=== PATIENT | female | born 1930 | race Caucasian/White ===

== ENCOUNTER 2018-01-15 14:11 | Inpatient (IN) | payer MEDICARE, BC, OTHER ==
[2018-01-15 16:17] LABS: ADD MAN DIFF? NO
[2018-01-15 16:22] LABS: BASO # 0.1 x10^3/uL (0.0-0.2); BASO % 1 % (0-3); EOS # 0.3 x10^3/uL (0.0-0.7); EOS % 5 % (0-3); HEMATOCRIT 36.9 % (36.0-47.0); HEMOGLOBIN 12.4 g/dL (12.0-15.5); LYMPH # 1.8 x10^3/uL (1.0-4.8); LYMPH % 29 % (24-48); MEAN CORPUSCULAR HEMOGLOBIN 31 pg (25-35); MEAN CORPUSCULAR HGB CONC 34 g/dL (31-37); MEAN CORPUSCULAR VOLUME 91 fL (79-100); MONO # 0.5 x10^3/uL (0.0-1.1); MONO % 8 % (0-9); NEUT # 3.5 x10^3uL (1.8-7.7); NEUT % 57 % (31-73); PLATELET COUNT 230 x10^3/uL (140-400); RED BLOOD COUNT 4.05 x10^6/uL (3.50-5.40); RED CELL DISTRIBUTION WIDTH 15.2 % (11.5-14.5); WHITE BLOOD COUNT 6.1 x10^3/uL (4.0-11.0)
[2018-01-15 16:28] LABS: PROTHROMBIN TIME PATIENT 12.3 SEC (11.7-14.0)
[2018-01-15 17:13] LABS: ANION GAP 10 (6-14); BLOOD UREA NITROGEN 11 mg/dL (7-20); CALCIUM 9.1 mg/dL (8.5-10.1); CARBON DIOXIDE 31 mmol/L (21-32); CHLORIDE 102 mmol/L (98-107); CREATININE 1.1 mg/dL (0.6-1.0); GFR 46.8; GLUCOSE 94 mg/dL (70-99); POTASSIUM 4.2 mmol/L (3.5-5.1); SODIUM 143 mmol/L (136-145)
[2018-01-15 17:20] LABS: ALBUMIN 3.2 g/dL (3.4-5.0); ALK PHOS 88 U/L (46-116); ALT (SGPT) 15 U/L (14-59); AST (SGOT) 20 U/L (15-37); DIRECT BILIRUBIN 0.2 mg/dL (0.0-0.2); MAGNESIUM 1.9 mg/dL (1.8-2.4); TOTAL BILIRUBIN 0.6 mg/dL (0.2-1.0); TOTAL PROTEIN 6.5 g/dL (6.4-8.2)
[2018-01-15 17:21] LABS: LACTIC ACID 1.4 mmol/L (0.4-2.0)
[2018-01-15 17:37] LABS: TROPONINI < 0.017 ng/mL (0.000-0.055)
[2018-01-15 17:39] LABS: THYROID STIM HORMONE (TSH) 1.483 uIU/mL (0.358-3.74)
[2018-01-15 17:42] LABS: CKMB INDEX 0.9 % (0-4); CKMB MASS 0.5 ng/mL (0.0-3.6); CREATINE KINASE 57 U/L (26-192)
[2018-01-15 17:53] LABS: BILIRUBIN,URINE NEGATIVE (NEG); CLARITY,URINE CLEAR; COLOR,URINE YELLOW; GLUCOSE,URINE NEGATIVE (NEG); NITRITE,URINE NEGATIVE (NEG); PH,URINE 5.5; PROTEIN,URINE NEGATIVE (NEG-TRACE); UROBILINOGEN,URINE 0.2 mg/dL (0.2 mg/dL)
[2018-01-15] MEDS ORDERED: ONDANSETRON PF 4 MG/2 ML VIAL. IV (18:00)
[2018-01-15 18:09] LABS: BACTERIA,URINE FEW /HPF (0-FEW); HYALINE CASTS, URINE MODERATE /HPF; RBC,URINE OCC /HPF (0-2); SQUAMOUS EPITHELIAL CELL,UR MOD /LPF
[2018-01-16 08:50] LABS: ADD MAN DIFF? NO
[2018-01-16 09:04] LABS: BASO % 1 % (0-3); EOS # 0.4 x10^3/uL (0.0-0.7); EOS % 6 % (0-3); HEMATOCRIT 37.1 % (36.0-47.0); HEMOGLOBIN 12.3 g/dL (12.0-15.5); LYMPH % 35 % (24-48); MEAN CORPUSCULAR HEMOGLOBIN 31 pg (25-35); MEAN CORPUSCULAR HGB CONC 33 g/dL (31-37); MEAN CORPUSCULAR VOLUME 93 fL (79-100); MONO # 0.4 x10^3/uL (0.0-1.1); MONO % 8 % (0-9); NEUT # 2.8 x10^3uL (1.8-7.7); NEUT % 50 % (31-73); PLATELET COUNT 220 x10^3/uL (140-400); RED BLOOD COUNT 4.01 x10^6/uL (3.50-5.40); RED CELL DISTRIBUTION WIDTH 14.7 % (11.5-14.5); WHITE BLOOD COUNT 5.6 x10^3/uL (4.0-11.0)
[2018-01-16 09:22] LABS: ANION GAP 5 (6-14); BLOOD UREA NITROGEN 12 mg/dL (7-20); CALCIUM 9.8 mg/dL (8.5-10.1); CARBON DIOXIDE 33 mmol/L (21-32); CHLORIDE 105 mmol/L (98-107); CREATININE 1.1 mg/dL (0.6-1.0); GFR 46.8; GLUCOSE 99 mg/dL (70-99); POTASSIUM 4.1 mmol/L (3.5-5.1); SODIUM 143 mmol/L (136-145)
[2018-01-16] MEDS ORDERED: SIMETHICONE 80 MG TAB.CHEW PO (11:30)
[2018-01-16] MEDS ORDERED: SENNOSIDES/DOCUSATE 8.6/50MG TABLET. PO (11:30)
[2018-01-16] MEDS ORDERED: NON FORMULARY ITEM (Ipratropium/Albuterol Sulfate (Combivent Respimat Inhal) 2 INH) IH (11:30)
[2018-01-16] MEDS ORDERED: POLYETHYLENE GLYCOL 3350 17 GM PACKET. PO (11:30)
[2018-01-16] MEDS ORDERED: SALIVA STIMULANT AGENT 44ML SPRAY BOTTLE. PO (11:45)
[2018-01-16] MEDS ORDERED: ALBUTEROL SULFATE 2.5 MG/3 ML NEBU. NEB ×2 (11:45)
[2018-01-16] MEDS ORDERED: ONDANSETRON ODT 4 MG TAB.RAPDIS. PO (11:45)
[2018-01-16] MEDS: IPRATRPIUM/ALBUTEROL 0.5/2.5MG 3 ML NEBU. NEB ×2 (12:00→16:00)
[2018-01-16] MEDS ORDERED: BUDESONIDE 0.5 MG/2 ML NEBU. NEB (12:00)
[2018-01-16] MEDS: fentaNYL 12MCG/HR PATCH 1 PATCH PATCH.TD72 TD (12:52)
[2018-01-16] MEDS: oxyCODONE IR 5 MG TABLET PO (12:52)
[2018-01-16] MEDS: CYANOCOBALAMIN (VITAMIN B-12) 1,000 MCG TABLET. PO (12:53)
[2018-01-16] MEDS: PARoxetine 10 MG TABLET PO (12:53)
[2018-01-16] MEDS: CETIRIZINE HCL 10 MG TABLET. PO (12:53)
[2018-01-16] MEDS: GABAPENTIN 300 MG CAPSULE. PO (12:53)
[2018-01-16] MEDS: CALCITRIOL 0.25 MCG CAPSULE. PO (12:53)
[2018-01-16] MEDS: PANTOPRAZOLE 40 MG TABLET.DR. PO (12:53)
[2018-01-16] MEDS: FUROSEMIDE 20 MG TABLET PO (12:54)
[2018-01-16] MEDS: ACETAMINOPHEN 500 MG TABLET PO ×2 (12:54→20:52)
[2018-01-16] MEDS: FERROUS SULFATE 325 MG TABLET. PO (12:54)
[2018-01-16] MEDS: FLUTICASONE 50MCG/NASAL SPRAY 16GM BOTTLE. NS ×2 (12:54→20:56)
[2018-01-16] MEDS: CLOTRIMAZOLE/BETAMETH 1%-0.05% TOPICAL CREAM 15GM TUBE. TP ×2 (12:54→20:57)
[2018-01-16 14:03] LABS: % SAT IRON 24 % (15-34); IRON,SERUM 55 ug/dL (50-170)
[2018-01-16 14:31] LABS: MRSA BY PCR Negative (Negative)
[2018-01-16] MEDS: diphenhydrAMINE HCL 25 MG CAPSULE PO (17:37)
[2018-01-16] MEDS: LACTOBACILLUS RHAMNOSUS GG 1 CAPSULE. PO (20:53)
[2018-01-16] MEDS: SIMVASTATIN 40 MG TABLET. PO (20:53)
[2018-01-17] MEDS: FERROUS SULFATE 325 MG TABLET. PO (08:00)
[2018-01-17] MEDS: CETIRIZINE HCL 10 MG TABLET. PO (08:51)
[2018-01-17] MEDS: GABAPENTIN 300 MG CAPSULE. PO (08:51)
[2018-01-17] MEDS: PANTOPRAZOLE 40 MG TABLET.DR. PO (08:51)
[2018-01-17] MEDS: CYANOCOBALAMIN (VITAMIN B-12) 1,000 MCG TABLET. PO (08:52)
[2018-01-17] MEDS: ACETAMINOPHEN 500 MG TABLET PO (08:52)
[2018-01-17] MEDS: ERGOCALCIFEROL (VITAMIN D2) 50,000 UNIT CAPSULE. PO (08:52)
[2018-01-17] MEDS: FUROSEMIDE 20 MG TABLET PO (08:54)
[2018-01-17] MEDS: LACTOBACILLUS RHAMNOSUS GG 1 CAPSULE. PO (08:54)
[2018-01-17] MEDS: CLOTRIMAZOLE/BETAMETH 1%-0.05% TOPICAL CREAM 15GM TUBE. TP (08:55)
[2018-01-17] MEDS: FLUTICASONE 50MCG/NASAL SPRAY 16GM BOTTLE. NS (08:55)
[2018-01-17] MEDS: CALCITRIOL 0.25 MCG CAPSULE. PO (08:55)
[2018-01-17] MEDS ORDERED: NON FORMULARY ITEM (Teriparatide (Forteo) 20 MCG) SQ (09:00)
[2018-01-17] MEDS ORDERED: NON FORMULARY ITEM (Fluticasone/Vilanterol (Breo Ellipta 200-25 Mcg INH) 1 PUFF) IH (09:00)
[2018-01-17] MEDS: PARoxetine 10 MG TABLET PO (09:09)
[2018-01-17] MEDS: oxyCODONE IR 5 MG TABLET PO (14:45)
== END 2018-01-17 15:05 | disposition home or self-care (01) | DRG 546 ==
LOC: ER 14:11 → 4 NORTH 17:30
DX: I73.00 Raynaud's syndrome without gangrene (principal); N39.0 Urinary tract infection, site not specified; E78.00 Pure hypercholesterolemia, unspecified; M51.16 Intervertebral disc disorders with radiculopathy, lumbar region; F32.9 Major depressive disorder, single episode, unspecified; M48.061 Spinal stenosis, lumbar region without neurogenic claudication; K21.9 Gastro-esophageal reflux disease without esophagitis; G89.29 Other chronic pain; Z96.642 Presence of left artificial hip joint; E78.5 Hyperlipidemia, unspecified; G47.00 Insomnia, unspecified; Z90.49 Acquired absence of other specified parts of digestive tract; Z90.710 Acquired absence of both cervix and uterus; Z88.0 Allergy status to penicillin; Z88.2 Allergy status to sulfonamides; Z83.3 Family history of diabetes mellitus; Z82.49 Family history of ischemic heart disease and other diseases of the circulatory system
CPT/HCPCS: 36415; 72148; 73610; 73630; 80048; 80076; 81001; 82553; 83540; 83550; 83605; 83735; 84443; 84484; 85025; 85610; 87086; 87641; 93005; 93923; 93971; 97161-GP; 97165-GO; 99285; 99285-25; J1956; Q0163